=== PATIENT | male | born 1990 | race Caucasian/White ===

== ENCOUNTER 2017-02-05 10:43 | Emergency (ER) | payer BC, OTHER ==
[~2017-02-05] VITALS: Ht 190.5 cm; Wt 86.0 kg
[2017-02-05 10:45] VITALS: BP 137/80; PULSE 62; RESP 15; TEMP 98.4; O2SAT 99
--- NOTE | 2017-02-05 11:16 | RADRPT ---
EXAM DATE/TIME: 02/05/2017 10:55 [place] COMPARISON: No previous studies available for comparison. INDICATIONS : Chest pain today. MEDICAL HISTORY : None. SURGICAL HISTORY : None. ENCOUNTER: Initial ACUITY: 1 day PAIN SCORE: 8/10 LOCATION: Bilateral upper chest FINDINGS: A single view of the chest demonstrates the lungs to be symmetrically aerated without evidence of mas s, infiltrate or effusion. The heart is mildly enlarged. There is dose of hilar fullness. Osseous str uctures are intact. CONCLUSION: 1. Mild cardiomegaly 2. No acute cardiopulmonary process. Ajay Alarcon MD on February 05, 2017 at 11:14 Board Certified Radiologist. This report was verified electronically.
--- NOTE | 2017-02-05 11:17 | PD ---
HPI Chief Complaint: Chest Pain Time Seen by Provider: 11:09 Travel History International Travel<30 days: No Contact w/Intl Traveler<30days: No Traveled to known affect area: No History of Present Illness HPI Patient was in complaining of intermittent left-sided chest pain ongoing for 3 days. Patient reports episodes of sharp stabbing substernal left-sided chest pain radiates to the right. Patient denies any other symptoms with this. Denies any shortness breath, nausea, vomiting, diaphoresis, numbness or tingling , headache, neck pain, or back pain. Patient states he cut back his Caffeine secondary to this. Patient reports he had a ultrasound done at work that showed per the windows deployment technician a bicuspid aortic valve. Patient denies anything making it worse and improves with rest. Patient states that the episodes only last a few seconds. [facility] Past Medical History Medical History: Denies Significant Hx Diminished Hearing: No Past Surgical History Oral Surgery: Yes (WISDOM TOOTH EXTRACTIONS) Other Surgery: Yes (BILAT HAND ) Social History Alcohol Use: No Tobacco Use: No Substance Use: No Allergies-Medications (Allergen,Severity, Reaction): Coded Allergies: Ceclor (Verified Allergy, Severe, throat swells, hives, 02/05/17) Reported Meds & Prescriptions Reported Meds & Active Scripts Active No Active Prescriptions or Reported Medications Review of Systems Except as stated in HPI: all other systems reviewed are Neg Physical Exam Narrative GENERAL: Well-developed, well nourished, in no acute distress, and non-ill appearing. SKIN: Focused skin assessment warm and dry. HEAD: Atraumatic. Normocephalic. EYES: Pupils equal and round. EOMI. No scleral icterus. No injection or drainage. ENT: No nasal bleeding or discharge. Mucous membranes pink and moist. NECK: Trachea midline. No JVD. Supple. No nuclear rigidity. CARDIOVASCULAR: Regular rate and rhythm. No murmur appreciated. Radial pulses 2+, intact, and equal bilaterally. RESPIRATORY: No accessory muscle use. No respiratory distress. Clear to auscultation. Breath sounds equal bilaterally. GASTROINTESTINAL: Abdomen soft, non-tender, nondistended, and no guarding. Hepatic and splenic margins not palpable. No pulsatile mass. MUSCULOSKELETAL: No obvious deformities. No clubbing. No cyanosis. No edema. Full range of motion. NEUROLOGICAL: Awake and alert. No obvious cranial nerve deficits. Motor grossly within normal limits. Normal speech. PSYCHIATRIC: Appropriate mood and affect; insight and judgment normal. Data Data Last Documented VS Vital Signs Date Time Temp Pulse Resp B/P Pulse Ox O2 Delivery O2 Flow Rate FiO2 02/05/17 11:22 51 127/63 126/68 02/05/17 11:18 99 Room Air 02/05/17 10:45 98.4 15 Orders Electrocardiogram (02/05/17 10:49) Complete Blood Count With Diff (02/05/17 10:49) Basic Metabolic Panel (Bmp) (02/05/17 10:49) Ckmb (Isoenzyme) Profile (02/05/17 10:49) Troponin I (02/05/17 10:49) Chest, Single Ap (02/05/17 10:49) Iv Access Insert/Monitor (02/05/17 10:49) Ecg Monitoring (02/05/17 10:49) Oxygen Administration (02/05/17 10:49) Oximetry (02/05/17 10:49) Prothrombin Time / Inr (Pt) (02/05/17 10:49) Magnesium (Mg) (02/05/17 11:18) Bilateral Bp Monitoring (02/05/17 11:18) Aspirin Chew (Aspirin Chew) (02/05/17 11:30) Labs Laboratory Tests Test 02/05/17 11:05 White Blood Count 5.7 TH/MM3 Red Blood Count 4.76 MIL/MM3 Hemoglobin 14.9 GM/DL Hematocrit 42.4 % Mean Corpuscular Volume 89.1 FL Mean Corpuscular Hemoglobin 31.3 PG Mean Corpuscular Hemoglobin 35.1 % Concent Red Cell Distribution Width 13.2 % Platelet Count 153 TH/MM3 Mean Platelet Volume 8.7 FL Neutrophils (%) (Auto) 42.7 % Lymphocytes (%) (Auto) 36.8 % Monocytes (%) (Auto) 10.2 % Eosinophils (%) (Auto) 9.9 % Basophils (%) (Auto) 0.4 % Neutrophils # (Auto) 2.4 TH/MM3 Lymphocytes # (Auto) 2.1 TH/MM3 Monocytes # (Auto) 0.6 TH/MM3 Eosinophils # (Auto) 0.6 TH/MM3 Basophils # (Auto) 0.0 TH/MM3 CBC Comment DIFF FINAL Differential Comment Prothrombin Time 11.5 SEC Prothromb Time International 1.0 RATIO Ratio Sodium Level 140 MEQ/L Potassium Level 3.9 MEQ/L Chloride Level 106 MEQ/L Carbon Dioxide Level 28.2 MEQ/L Anion Gap 6 MEQ/L Blood Urea Nitrogen 15 MG/DL Creatinine 0.91 MG/DL Estimat Glomerular Filtration 101 ML/MIN Rate Random Glucose 94 MG/DL Calcium Level 9.1 MG/DL Magnesium Level 2.2 MG/DL Total Creatine Kinase 86 U/L Troponin I LESS THAN 0.02 NG/ML MDM Medical Decision Making Medical Screen Exam Complete: Yes Emergency Medical Condition: Yes Interpretation(s) EKG reviewed by Dr. Willard, shows sinus bradycardia with a ventricular to 48. No STEMI. Chest x-ray by the radiologist shows: 1. Mild cardiomegaly 2. No acute cardiopulmonary process. Differential Diagnosis Acute coronary syndrome, unstable angina, GERD, esophageal spasm, musculoskeletal pain, atypical chest pain, pneumothorax, pneumonia, other Narrative Course The patients chest pain by history and evaluation appears noncardiac, nor noncardiopulmonary in etiology. There is no clinical evidence to suggest thoracic aortic aneurysms or pathology, nor evidence to suggest pulmonary embolism, pericarditis, pneumothorax, nor pneumonia at this time. The patient has no significant risk factors for cardiac disease, pulmonary embolism or aortic disease. Clinical suspicion was discussed with patient and the patient was referred to and instructed to follow up with Cardiology for potential outpatient evaluation. Dr. Willard discussed this management with the patient and the patient understands the importance or acute follow up with cardiology for outpatient further evaluation. The patient was instructed to return at any time if chest pain recurs, persists, changes or worsens in anyway while awaiting follow up. The patient agreed with plan. Patient in no obvious distress upon re-evaluation. All pertinent laboratory/ Radiology result(s) discussed with patient/family. Discussed patient with Dr. Young prior to discharge, who saw and evaluated the patient is in agreement with plan of care and disposition. Any questions/concerns in reference to patient diagnosis/condition discussed and clarified prior to patient's discharge. Reinforced sheer importance of close follow up with patient's primary physician or primary care clinic. Instructed patient to return to ED immediately, if symptoms return/worsen. Pt showed understanding of above instructions. Further instructions and recommendations were detailed in discharge paperwork. Pt ambulated without difficulty out of ED at discharge. Diagnosis Primary Impression: Atypical chest pain [facility] Patient Instructions: Chest Pain (ED), General Instructions Departure Forms: Work Release Enter return to work date: Feb 06, 2017 Additional Instructions: Follow-up with saturation diver this week for further evaluation. Return to the emergency department if symptoms get worse. Scripts No Active Prescriptions or Reported Meds Disposition: 01 DISCHARGE HOME Condition: Stable Armani Alatorre Feb 05, 2017 11:17
[2017-02-05 11:18] VITALS: O2SAT 99
[2017-02-05 11:22] VITALS: BP_SYST 126; BP_SYST 127; BP_DIAS 63; BP_DIAS 68; PULSE 51
[2017-02-05] MEDS ORDERED: ASPIRIN 81 MG CHEW TAB PO ONE (11:30)
[2017-02-05 11:42] LABS: AUTOMATED NEUTROPHIL # 2.4 TH/MM3 (1.8-7.7); BASOPHIL % 0.4 % (0.0-2.0); EOSINOPHIL # 0.6 TH/MM3 (0-0.4); EOSINOPHIL % 9.9 % (0.0-4.0); HEMATOCRIT 42.4 % (39.0-51.0); HEMO FLAGS DIFF FINAL; LYMPH % 36.8 % (9.0-44.0); LYMPHOCYTE # 2.1 TH/MM3 (1.0-4.8); MEAN CELL VOLUME 89.1 FL (80.0-100.0); MEAN CORPUSCULAR HEMOGLOBIN 31.3 PG (27.0-34.0); MEAN CORPUSCULAR HGB CONC 35.1 % (32.0-36.0); MONO % 10.2 % (0.0-8.0); NEUT % 42.7 % (16.0-70.0); PLATELET COUNT 153 TH/MM3 (150-450); RED BLOOD COUNT 4.76 MIL/MM3 (4.50-5.90); RED CELL DISTRIBUTION WIDTH 13.2 % (11.6-17.2); WHITE BLOOD COUNT 5.7 TH/MM3 (4.0-11.0)
[2017-02-05 11:50] LABS: PROTHROMBIN TIME - PATIENT 11.5 SEC (9.8-11.6)
[2017-02-05 11:59] LABS: ANION GAP 6 MEQ/L (5-15); BICARBONATE 28.2 MEQ/L (21.0-32.0); BLOOD UREA NITROGEN 15 MG/DL (7-18); CHLORIDE 106 MEQ/L (98-107); GLOMERULAR FILTRATION RATE 101 ML/MIN (>89); POTASSIUM 3.9 MEQ/L (3.5-5.1); SODIUM (NA) 140 MEQ/L (136-145)
[2017-02-05 12:03] LABS: CREATINE KINASE 86 U/L (39-308)
--- NOTE | 2017-02-05 15:14 | PD ---
Data Data Last Documented VS Vital Signs Date Time Temp Pulse Resp B/P Pulse Ox O2 Delivery O2 Flow Rate FiO2 02/05/17 11:22 51 127/63 126/68 02/05/17 11:18 99 Room Air 02/05/17 10:45 98.4 15 Orders Electrocardiogram (02/05/17 10:49) Complete Blood Count With Diff (02/05/17 10:49) Basic Metabolic Panel (Bmp) (02/05/17 10:49) Ckmb (Isoenzyme) Profile (02/05/17 10:49) Troponin I (02/05/17 10:49) Chest, Single Ap (02/05/17 10:49) Iv Access Insert/Monitor (02/05/17 10:49) Ecg Monitoring (02/05/17 10:49) Oxygen Administration (02/05/17 10:49) Oximetry (02/05/17 10:49) Prothrombin Time / Inr (Pt) (02/05/17 10:49) Magnesium (Mg) (02/05/17 11:18) Bilateral Bp Monitoring (02/05/17 11:18) Aspirin Chew (Aspirin Chew) (02/05/17 11:30) Labs Laboratory Tests Test 02/05/17 11:05 White Blood Count 5.7 TH/MM3 Red Blood Count 4.76 MIL/MM3 Hemoglobin 14.9 GM/DL Hematocrit 42.4 % Mean Corpuscular Volume 89.1 FL Mean Corpuscular Hemoglobin 31.3 PG Mean Corpuscular Hemoglobin 35.1 % Concent Red Cell Distribution Width 13.2 % Platelet Count 153 TH/MM3 Mean Platelet Volume 8.7 FL Neutrophils (%) (Auto) 42.7 % Lymphocytes (%) (Auto) 36.8 % Monocytes (%) (Auto) 10.2 % Eosinophils (%) (Auto) 9.9 % Basophils (%) (Auto) 0.4 % Neutrophils # (Auto) 2.4 TH/MM3 Lymphocytes # (Auto) 2.1 TH/MM3 Monocytes # (Auto) 0.6 TH/MM3 Eosinophils # (Auto) 0.6 TH/MM3 Basophils # (Auto) 0.0 TH/MM3 CBC Comment DIFF FINAL Differential Comment Prothrombin Time 11.5 SEC Prothromb Time International 1.0 RATIO Ratio Sodium Level 140 MEQ/L Potassium Level 3.9 MEQ/L Chloride Level 106 MEQ/L Carbon Dioxide Level 28.2 MEQ/L Anion Gap 6 MEQ/L Blood Urea Nitrogen 15 MG/DL Creatinine 0.91 MG/DL Estimat Glomerular Filtration 101 ML/MIN Rate Random Glucose 94 MG/DL Calcium Level 9.1 MG/DL Magnesium Level 2.2 MG/DL Total Creatine Kinase 86 U/L Troponin I LESS THAN 0.02 NG/ML MDM Supervised Visit with FATIMAH: Yes Narrative Course The history, exam, and medical decision-making in the associated midlevel provider note were completed with my assistance. I reviewed and agree with the findings presented. I attest that I had a [id number] encounter with the patient on the same day, and personally performed and documented my assessment and findings in the medical record. *My assessment and Findings: This is a 26-year-old male who presents the emergency department with intermittent chest discomfort that's been going on for 1 week. He was told once that he has a bicuspid aortic valve on echo. He never had it followed up by a production operations engineer. He feels like his chest pain is getting more frequently came to the emergency department. His chest pain is atypical, sharp, lasting for several seconds and then subsiding and is not exertional. He has no other symptoms. He is young and healthy and has no risk factors for heart disease. Troponin was reassuring. EKG demonstrates hypertrophic cardiomyopathy which he's been told about in the past. I think he definitely needs an outpatient cardiology evaluation but I don't suspect coronary artery disease and I think he is safe for discharge. I discussed this with the patient who is stressed understanding. Diagnosis Primary Impression: Atypical chest pain Referrals: Steve Gomez MD [facility] Patient Instructions: General Instructions, Chest Pain (ED) Departure Forms: Work Release Enter return to work date: Additional Instruction: Follow-up with production operations engineer this week for further evaluation. Return to the emergency department if symptoms get worse. Scripts No Active Prescriptions or Reported Meds Disposition: 01 DISCHARGE HOME Condition: Stable Yaima Willard MD Feb 05, 2017 15:14
--- NOTE | 2017-02-06 08:40 | EKG ---
Date Performed: 02/05/2017 Time Performed: 11:13:31 PTAGE: 26 years EKG: SINUS BRADYCARDIA POSSIBLE LEFT VENTRICULAR HYPERTROPHY ABNORMAL ECG NO PREVIOUS TRACING DOCTOR: Fei Dong Interpretating Date/Time 02/06/2017 08:34:07
== END 2017-02-05 14:02 | disposition home or self-care (01) ==
LOC: NEPE 10:43
DX: R07.89 Other chest pain (principal); I42.2 Other hypertrophic cardiomyopathy; I51.7 Cardiomegaly
CPT/HCPCS: 71010; 80048; 82550; 83735; 84484; 85025; 85610; 93005; 99285